=== PATIENT | female | born 1960 | race Caucasian/White ===

== ENCOUNTER 2016-12-16 20:36 | Observation (INO) | payer BC ==
[~2016-12-16] VITALS: Ht 157.5 cm; Wt 85.8 kg
[~2016-12-16 20:36] MED LIST: DIOVAN HCT 25 M1 TAB PO; FLONASE NASAL S16 GM NS; LIPITOR 40MG TA40 MG PO; NORCO 325 MG-51 TAB PO; PREMARIN0.45 MG PO; PRIL40 PO; PRILOSEC 20MG20 MG PO; PROZAC 20MG20 MG; PROZAC 20MG20 MG PO; TAMBOCOR 1100 MG/TAB; TAMBOCOR 1100 MG/TAB PO; VITAMIN C PUR1000 MG PO; VITAMIN D31000 IU; XANAX .25M0.25 MG/TA PO; ZINC10 M1 PO; ZOCOR 40MG40 MG PO
[2016-12-16 21:06] LABS: BASO # 0.1 (0.0-0.2); BASO % 0.5 % (0.0-2.0); EOS # 0.1 (0.0-0.7); EOS % 1.4 % (0-4.0); GRAN # 5.6 (1.4-6.5); GRAN % 59.2 % (42.2-75.2); HEMATOCRIT 37.8 % (37.0-47.0); LYMPH # 3.1 (1.2-3.4); LYMPH % 32.4 % (20.0-51.0); MEAN CELL VOLUME 85 fl (80.0-100.0); MEAN CORPUSCULAR HEMOGLOBIN 29 pg (27.0-31.0); MEAN CORPUSCULAR HGB CONC 34 g/dl (33.0-37.0); MEAN PLATELET VOLUME 9.8 fl (7.4-10.4); MONO # 0.6 (0.1-0.6); MONO % 6.1 % (1.7-9.3); PLATELET COUNT 192 K/mm3 (130-400); RED BLOOD COUNT 4.44 M/mm3 (4.10-5.30); REDCELL DISTRIBUTION WIDTH-CV 13.8 % (11.5-14.5); WHITE BLOOD COUNT 9.5 K/mm3 (4.8-10.8)
[2016-12-16 21:10] LABS: PROTHROMBIN TIME 10.5 SECONDS (9.7-12.8)
[2016-12-16 21:12] LABS: PARTIAL THROMBOPLASTIN TIME 30.4 SECONDS (26.0-37.0)
[2016-12-16 21:14] LABS: ADJUSTED CALCIUM 9.3 mg/dL (8.4-10.2); ALANINE AMINOTRANSFERASE 20 U/L (9-52); ALBUMIN 4.1 gm/dL (3.5-5.0); ALKALINE PHOSPHATASE 51 U/L (50-136); ANION GAP 14 mmol/L (7-16); BILIRUBIN,TOTAL 0.6 mg/dL (0.0-1.0); BLOOD UREA NITROGEN 15 mg/dL (7-17); CALCIUM 9.4 mg/dL (8.4-10.2); CARBON DIOXIDE 26 mmol/L (22-30); CHLORIDE 97 mmol/L (98-107); CREATININE, serum 0.73 mg/dL (0.52-1.25); GLUCOSE 105 mg/dL (74-106); LIPASE 201 U/L (23-300); POTASSIUM 3.3 mmol/L (3.4-5.0); SODIUM 137 mmol/L (137-145); TOTAL PROTEIN 6.7 gm/dL (6.4-8.2)
[2016-12-16 21:28] LABS: TROPONIN-I < 0.012 ng/mL (0.000-0.034)
[2016-12-16 23:09] LABS: PH 5 (5-8); SQUAMOUS EPITHELIAL 0-2 /hpf; URINE APPEARANCE Clear; URINE BACTERIA Rare /hpf; URINE BILIRUBIN Negative (NEGATIVE); URINE BLOOD Negative (NEGATIVE); URINE COLOR Yellow; URINE GLUCOSE Negative (NEGATIVE); URINE KETONE Negative (NEGATIVE); URINE RBC 0-2 /hpf; URINE UROBILINOGEN Negative (NEGATIVE); URINE WBC 0-2 /hpf
[2016-12-17 01:34] VITALS: BP 122/68; PULSE 77; TEMP 98.4
[2016-12-17 04:44] VITALS: BP 126/67; PULSE 79; TEMP 98.2
[2016-12-17 07:28] VITALS: BP 124/54; PULSE 72; TEMP 98.7
[2016-12-17 11:32] VITALS: BP 121/78; PULSE 80; TEMP 98
[2016-12-17 15:46] VITALS: BP 131/67; PULSE 89; TEMP 98.1
[2016-12-17] MEDS ORDERED: PLAVIX 75MG TAB75 MG PO (18:30)
[2016-12-17 19:41] VITALS: BP 132/62; PULSE 86; TEMP 97.7
== END 2016-12-17 20:20 | disposition home or self-care (01) ==
LOC: COL.ER 20:36 → MEDICAL 22:43
PROVIDERS: Emergency Medicine; Nurse Practitioner Family
DX: G43.909 Migraine, unspecified, not intractable, without status migrainosus (principal); G47.33 Obstructive sleep apnea (adult) (pediatric); G47.10 Hypersomnia, unspecified; I65.23 Occlusion and stenosis of bilateral carotid arteries; I10 Essential (primary) hypertension; K21.9 Gastro-esophageal reflux disease without esophagitis; E78.1 Pure hyperglyceridemia
CPT/HCPCS: A9585; G0378; G8978-GP; G8979-GP; G8987-GO; G8988-GO; J1650; J2060; J7030

== ENCOUNTER → 2016-12-29 | Outpatient (CLI) | payer BC ==
[~2016-12-29] MED LIST changes: +PLAVIX 75MG TAB75 MG PO
== END ==
LOC: MC.RAD 07:20
DX: Z12.31 Encounter for screening mammogram for malignant neoplasm of breast (principal)

== ENCOUNTER → 2018-02-03 | Outpatient (CLI) | payer BC | LOC: COL.VAS 09:33 | DX: I65.21 Occlusion and stenosis of right carotid artery (principal) ==

== ENCOUNTER → 2018-03-12 | Outpatient (CLI) | payer BC | LOC: MC.RAD 07:48 | DX: Z12.31 Encounter for screening mammogram for malignant neoplasm of breast (principal) ==

== ENCOUNTER → 2019-04-19 | Outpatient (CLI) | payer BC | LOC: MC.RAD 07:12 | DX: Z12.31 Encounter for screening mammogram for malignant neoplasm of breast (principal) ==

== ENCOUNTER → 2020-04-24 | Outpatient (CLI) | payer OTHER | LOC: MC.RAD 16:58 | DX: Z12.31 Encounter for screening mammogram for malignant neoplasm of breast (principal) ==

== ENCOUNTER → 2020-07-02 | Outpatient (CLI) | payer OTHER | LOC: ZLAB.KSTAT 18:15 | DX: U07.1 COVID-19 (principal) ==

== ENCOUNTER 2020-09-22 14:40 | Emergency (ER) | payer OTHER ==
[~2020-09-22] VITALS: Ht 157.5 cm; Wt 90.9 kg
[2020-09-22 14:52] VITALS: BP 142/71; TEMP 98.1
[2020-09-22 15:38] LABS: BASO # 0.1 (0.0-0.2); BASO % 0.5 % (0.0-2.0); EOS # 3.7 (0.0-0.7); EOS % 31.6 % (0-4.0); GRAN # 4.7 (1.4-6.5); GRAN % 40.1 % (42.2-75.2); HEMATOCRIT 42.1 % (37.0-47.0); HEMOGLOBIN 13.8 g/dl (12.5-16.0); LYMPH # 2.7 (1.2-3.4); LYMPH % 22.6 % (20.0-51.0); MEAN CELL VOLUME 89 fl (80.0-100.0); MEAN CORPUSCULAR HEMOGLOBIN 29 pg (27.0-31.0); MEAN CORPUSCULAR HGB CONC 33 g/dl (33.0-37.0); MEAN PLATELET VOLUME 9.8 fl (7.4-10.4); MONO # 0.6 (0.1-0.6); MONO % 4.7 % (1.7-9.3); PLATELET COUNT 168 K/mm3 (130-400); RED BLOOD COUNT 4.74 M/mm3 (4.10-5.30); REDCELL DISTRIBUTION WIDTH-CV 14.9 % (11.5-14.5)
[2020-09-22 16:14] LABS: ALBUMIN 4.3 gm/dL (3.5-5.0); BILIRUBIN,TOTAL 0.4 mg/dL (0.0-1.0); CREATININE, serum 0.85 (0.52-1.25); POTASSIUM 4.6 mmol/L (3.4-5.0); TOTAL PROTEIN 6.8 gm/dL (6.4-8.2)
[2020-09-22] MEDS ORDERED: NORCO 325 MG-51 TAB PO (18:42)
[2020-09-22 18:53] VITALS: PULSE 74
== END 2020-09-22 18:55 | disposition home or self-care (01) ==
LOC: COL.ER 14:40
PROVIDERS: Nurse Practitioner Primary Care
DX: K85.90 Acute pancreatitis without necrosis or infection, unspecified (principal); I10 Essential (primary) hypertension; K21.9 Gastro-esophageal reflux disease without esophagitis; E78.5 Hyperlipidemia, unspecified; Z88.6 Allergy status to analgesic agent; Z88.8 Allergy status to other drugs, medicaments and biological substances; Z79.02 Long term (current) use of antithrombotics/antiplatelets
CPT/HCPCS: J2270; J7030; Q9967

== ENCOUNTER → 2020-11-06 | Outpatient (CLI) | payer OTHER | LOC: COL.RAD 11:38 | DX: R10.84 Generalized abdominal pain (principal) | CPT/HCPCS: A9537; J2805 ==

== ENCOUNTER 2020-11-16 10:19 | Day surgery (SDC) | payer OTHER ==
[~2020-11-16] VITALS: Ht 157.5 cm; Wt 90.2 kg
--- NOTE | 2020-11-16 10:55 | NUR ---
Initial visit; Patient thanked Nutrition Intern for offering encouragement and prayer for her upcoming surgical procedure and a rapid and thorough recovery.
[2020-11-16 11:02] VITALS: BP 126/67; PULSE 97; TEMP 97.8
[2020-11-16] MEDS ORDERED: PLAVIX 75MG TAB75 MG PO (11:12)
[2020-11-16] MEDS ORDERED: PROTONIX 40MG T40 MG PO (11:13)
[2020-11-16] MEDS ORDERED: BENICAR HCT 12.1 TA1 PO (11:13)
[2020-11-16] MEDS ORDERED: LIPITOR 80MG80 MG PO ×2 (11:14→11:15)
[2020-11-16] MEDS ORDERED: LASIX 40MG TABL40 MG PO (11:15)
[2020-11-16] MEDS ORDERED: HCTZ12.5TAB PO (11:16)
[2020-11-16] MEDS ORDERED: CELEXA 20MG20 MG/TAB PO (11:17)
[2020-11-16] MEDS ORDERED: BENICAR40 MG PO (11:19)
[2020-11-16] MEDS ORDERED: LEVSIN0.125 M1 PO (11:20)
[2020-11-16] MEDS ORDERED: KLOR-CON 1010 MEQ PO (11:21)
[2020-11-16] MEDS ORDERED: PERCOCET 325 MG1 TA2 PO (14:20)
[2020-11-16 15:25] VITALS: BP 122/58; PULSE 84; TEMP 97.6
--- NOTE | 2020-11-16 15:25 | NUR ---
TO RM 6 PER CART FROM PACU. DROWSY, BUT TALKING TO STAFF AND . 02 SAT AT 2L PER NC. RECEIVED WATER AND TAKING SIPS. INCISION CLEAN DRY WITH SKIN ADHESIVE. DENIES NAUSEA C/O PAIN 11/28.
[2020-11-16 15:40] VITALS: BP 87/66; PULSE 80
[2020-11-16 15:55] VITALS: BP 117/62; PULSE 83
--- NOTE | 2020-11-16 15:55 | NUR ---
CONTINUES TO SLEEP QUIETLY
[2020-11-16 16:10] VITALS: BP 124/59; PULSE 78
--- NOTE | 2020-11-16 16:10 | NUR ---
RECEIVED JOSE. PUDDING AND SPRITE. AT BEDSIDE HELPING HER EAT.
[2020-11-16 16:25] VITALS: BP 129/65; PULSE 86
--- NOTE | 2020-11-16 16:25 | NUR ---
UPON REPOSITIONING TO SIT UP PAIN BECAME WORSE. 05/31. RECEIVED PERCOCET 5/325MG 1 TAB.
--- NOTE | 2020-11-16 16:45 | NUR ---
AMBULATED TO BATHROOM WITH ASSIST. VOIDED AND AMBULATED BACK TO BED.
--- NOTE | 2020-11-16 17:00 | NUR ---
RECEIVED DISCHARGE INSTRUCTIOINS AND VERBALIZED UNDERSTANDING. AT BEDSIDE. DISCONTINED IV AND INT- CATHETER INTACT. PATIENT GETTING DRESSED AND BEING ASSITED BY .
--- NOTE | 2020-11-16 17:21 | NUR ---
DISCHARGED PER WC BY NURSING STAFF TO PRIVATE CAR IN CARE OF .
== END 2020-11-16 17:22 | disposition home or self-care (01) ==
LOC: SDCO 10:19
DX: K81.1 Chronic cholecystitis (principal); K82.8 Other specified diseases of gallbladder; F41.1 Generalized anxiety disorder; I10 Essential (primary) hypertension; E78.00 Pure hypercholesterolemia, unspecified; I48.91 Unspecified atrial fibrillation; F32.9 Major depressive disorder, single episode, unspecified; Z90.710 Acquired absence of both cervix and uterus; Z79.01 Long term (current) use of anticoagulants; Z79.02 Long term (current) use of antithrombotics/antiplatelets; Z86.73 Personal history of transient ischemic attack (TIA), and cerebral infarction without residual deficits; Z88.6 Allergy status to analgesic agent; Z88.1 Allergy status to other antibiotic agents; Z88.8 Allergy status to other drugs, medicaments and biological substances
CPT/HCPCS: J0690; J1100; J1170; J1885; J2250; J2405; J2704; J7120; Q9967

== ENCOUNTER → 2021-05-30 | Outpatient (CLI) | payer OTHER ==
[~2021-05-30] MED LIST changes: +BENICAR HCT 12.1 TA1 PO; +BENICAR40 MG PO; +CELEXA 20MG20 MG/TAB PO; +HCTZ12.5TAB PO; +KLOR-CON 1010 MEQ PO; +LASIX 40MG TABL40 MG PO; +LEVSIN0.125 M1 PO; +LIPITOR 80MG80 MG PO; +PERCOCET 325 MG1 TA2 PO; +PROTONIX 40MG T40 MG PO
== END ==
LOC: MC.RAD 07:59
DX: Z12.31 Encounter for screening mammogram for malignant neoplasm of breast (principal); N63.20 Unspecified lump in the left breast, unspecified quadrant

== ENCOUNTER → 2021-06-07 | Outpatient (CLI) | payer OTHER | LOC: MC.RAD 07:53 | DX: N63.20 Unspecified lump in the left breast, unspecified quadrant (principal) ==

== ENCOUNTER 2022-03-04 09:44 | Outpatient (CLI) | payer OTHER ==
[2022-03-04] VITALS (7 sets, daily range): BP systolic 109–116; BP diastolic 40–75; PULSE 51–62
[~2022-03-04] VITALS: Ht 157.5 cm; Wt 100.0 kg
[~2022-03-04 09:44] MED LIST changes: -CELEXA 20MG20 MG/TAB PO; +CELEXA40 MG PO
== END 2022-03-04 15:17 ==
LOC: EUO 09:44
DX: Z79.899 Other long term (current) drug therapy (principal)
CPT/HCPCS: J3475

== ENCOUNTER → 2022-06-02 | Outpatient (CLI) | payer OTHER | LOC: MC.RAD 07:30 | DX: Z12.31 Encounter for screening mammogram for malignant neoplasm of breast (principal) ==

== ENCOUNTER 2022-11-13 14:13 | Emergency (ER) | payer OTHER ==
[~2022-11-13] VITALS: Ht 157.5 cm; Wt 97.3 kg
[2022-11-13 14:19] VITALS: TEMP 98.2
[2022-11-13 15:26] LABS: BASO # 0.1 K/mm3 (0.0-0.2); BASO % 0.7 % (0.0-2.0); EOS # 0.2 K/mm3 (0.0-0.7); EOS % 2.7 % (0.0-4.0); GRAN # 4.1 K/mm3 (1.4-6.5); GRAN % 61.4 % (42.2-75.2); HEMOGLOBIN 10.4 g/dl (12.5-16.0); LYMPH # 1.8 K/mm3 (1.2-3.4); LYMPH % 26.7 % (20.0-51.0); MEAN CELL VOLUME 95 fl (80.0-100.0); MEAN CORPUSCULAR HEMOGLOBIN 31 pg (27-31); MEAN CORPUSCULAR HGB CONC 33 g/dl (33.0-37.0); MEAN PLATELET VOLUME 9.6 fl (7.4-10.4); MONO # 0.5 K/mm3 (0.1-0.6); MONO % 7.5 % (1.7-9.3); PLATELET COUNT 187 K/mm3 (130-400); RED BLOOD COUNT 3.33 M/mm3 (4.10-5.30); REDCELL DISTRIBUTION WIDTH-CV 14.1 % (11.5-14.5)
[2022-11-13 15:27] LABS: HEMATOCRIT 31.5 % (37.0-47.0)
[2022-11-13 15:57] LABS: ALANINE AMINOTRANSFERASE 15 U/L (0-55); ALBUMIN 4.1 gm/dL (3.4-4.8); ALKALINE PHOSPHATASE 51 U/L (40-150); ANION GAP 11 mmol/L (7-16); AST,SGOT 13 U/L (5-34); BILIRUBIN,TOTAL 0.3 mg/dL (0.2-1.2); BLOOD UREA NITROGEN 29 mg/dL (10-20); CALCIUM 9.7 mg/dL (8.4-10.2); CARBON DIOXIDE 24 mmol/L (23-31); CHLORIDE 106 mmol/L (98-107); GLUCOSE 105 mg/dL (70-99); POTASSIUM 4.1 mmol/L (3.5-4.5); SODIUM 141 mmol/L (136-145)
[2022-11-13 16:07] LABS: TROPONIN-I < 0.010 ng/mL (0.00-0.033)
[2022-11-13 16:10] LABS: PROTHROMBIN TIME 11.1 SECONDS (9.7-12.8)
[2022-11-13 16:51] VITALS: BP 118/57; PULSE 68
[2022-11-13] MEDS ORDERED: BUMEX 1MG TA1 MG/TA1 PO (17:09)
[2022-11-13] MEDS ORDERED: CRESTOR20 MG PO (17:10)
[2022-11-13] MEDS ORDERED: MAG-OX 400400 MG/TAB PO (17:11)
[2022-11-13] MEDS ORDERED: ALDACTONE 25MG25 M1 PO (17:12)
[2022-11-13] MEDS ORDERED: XALATAN EYE DROPS OU (17:12)
[2022-11-13] MEDS ORDERED: PROAIR HFA0.09 MG/AC IH (17:13)
[2022-11-13] MEDS ORDERED: TRELEGY ELLIPT1 EACH IH (17:13)
[2022-11-13] MEDS ORDERED: CARDIZEM120 MG PO (17:14)
== END 2022-11-13 16:42 | disposition home or self-care (01) ==
LOC: COL.ER 14:13
PROVIDERS: Family Medicine
DX: R60.0 Localized edema (principal); R79.89 Other specified abnormal findings of blood chemistry